=== PATIENT | female | born 1990 | race African-American/Black ===

== ENCOUNTER 2016-08-08 16:02 | Emergency (ER) | payer OTHER ==
[~2016-08-08] VITALS: Ht 170.2 cm; Wt 65.8 kg
[~2016-08-08 16:02] MED LIST: HYDROXYZINE HCL25 M1 PO; HYDROXYZINE HCL25 M2 PO; IBUPROFEN 600600 M1 PO; NAPROSYN500 MG PO; NOHOMEMEDICATIONS; TRAMADOL 50 MG50 MG PO
[2016-08-08 16:03] VITALS: BP 112/68
[2016-08-08 16:12] LABS: URINE BILIRUBIN NEGATIVE (Negative); URINE BLOOD 1+ (Negative); URINE COLOR YELLOW; URINE GLUCOSE-RANDOM* NEGATIVE (Negative); URINE KETONES NEGATIVE (Negative); URINE LEUKOCYTES-REFLEX NEGATIVE (Negative); URINE PROTEIN (DIPSTICK) NEGATIVE (Negative); URINE SPECIFIC GRAVITY >= 1.030 (1.003-1.035)
[2016-08-08 16:18] LABS: SQUAMOUS 0-3 Few /LPF (0-3); URINE RBC 3-10 Few /HPF (0-2); URINE WBC-REFLEX 0-5 Rare /HPF (0-5)
[2016-08-08 16:19] LABS: CASTS None Seen /LPF (None Seen); CRYSTALS None Seen /LPF (None Seen)
[2016-08-08] MEDS ORDERED: FLAGYL500 MG PO (16:59)
[2016-08-08] MEDS ORDERED: NORFLEX100 MG PO (16:59)
[2016-08-08] MEDS ORDERED: NABUMETONE 750750 M1 PO (16:59)
[2016-08-09 20:10] LABS: CHLAMYDIA TRACHOMATIS-PCR Negative (Negative); NEISSERIA GONORRHEA-PCR Negative (Negative)
== END 2016-08-08 17:14 | disposition home or self-care (01) ==
LOC: ER 16:02
PROVIDERS: Physician Assistant
DX: N76.0 Acute vaginitis (principal); M54.5 Low back pain; F41.9 Anxiety disorder, unspecified; F17.210 Nicotine dependence, cigarettes, uncomplicated

== ENCOUNTER 2016-10-06 16:58 | Emergency (ER) | payer OTHER ==
[~2016-10-06] VITALS: Ht 170.2 cm; Wt 68.0 kg
[~2016-10-06 16:58] MED LIST changes: +FLAGYL500 MG PO; +NABUMETONE 750750 M1 PO; +NORFLEX100 MG PO
[2016-10-06] MEDS ORDERED: CYCLOBENZAPRINE5 MG PO (17:57)
[2016-10-06] MEDS ORDERED: MOBIC15 MG PO (17:57)
[2016-10-06] MEDS ORDERED: PREDNISONE 20 M20 MG PO (17:57)
[2016-10-06 18:37] VITALS: BP 108/74
== END 2016-10-06 18:42 | disposition home or self-care (01) ==
LOC: ER 16:58
DX: M54.31 Sciatica, right side (principal); F41.9 Anxiety disorder, unspecified; F17.210 Nicotine dependence, cigarettes, uncomplicated